=== PATIENT | male | born 1975 ===

== ENCOUNTER 2018-10-01 01:08 | Emergency (ER) | payer SELFPAY ==
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
[2018-10-01 04:33] VITALS: TEMP 98.1
[2018-10-01] MEDS ORDERED: Lidocaine/Prilocaine 2.5%-2.5% Cream (5 gm) TOP STA (05:54)
[2018-10-01] MEDS ORDERED: Lidocaine/Prilocaine 2.5%-2.5% Cream (5 gm) TOP ONE (06:00)
[2018-10-01 06:13] VITALS: BP 101/72; PULSE 80; RESP 20; O2SAT 96
[2018-10-01] MEDS ORDERED: Bacitracin 500 Units/gm Oint Foilpak UD ONE (06:27)
--- NOTE | 2018-10-01 08:45 | CT ---
Date of service: 10/01/2018 PROCEDURE: CT HEAD WITHOUT CONTRAST. HISTORY: Fall COMPARISON: None available. TECHNIQUE: Axial computed tomography images were obtained through the head/brain without intravenous contrast. Radiation dose: Total exam DLP = 1047.36 mGy-cm. This CT exam was performed using one or more of the following dose reduction techniques: Automated exposure control, adjustment of the mA and/or kV according to patient size, and/or use of iterative reconstruction technique. FINDINGS: HEMORRHAGE: No intracranial hemorrhage. BRAIN: Leiva-white matter differentiation is preserved. There is no mass, mass effect or abnormal extra-axial fluid collection. There is no territorial infarction. The midline sagittal structures are normal. VENTRICLES: The ventricles are normal in size, shape and configuration. CALVARIUM: There is no calvarial fracture or extracranial soft tissue swelling. PARANASAL SINUSES: There is moderate scattered mucoperiosteal thickening in the ethmoid air cells and mild mucosal thickening in the visualized maxillary sinuses. The remaining included paranasal sinuses are clear. MASTOID AIR CELLS: Predominantly clear. OTHER FINDINGS: None. IMPRESSION: No acute intracranial abnormality. A preliminary report was provided by [employer].
--- NOTE | 2018-10-01 09:01 | CT ---
Date of service: 10/01/2018 PROCEDURE: Radiographs of the Orbits. HISTORY: Fall COMPARISON: None available. TECHNIQUE: Frontal, lateral and oblique radiographs of the orbits were obtained. FINDINGS: ORBITS: There is no acute orbital fracture. The globes are symmetric. There is no intra or retro-orbital hemorrhage. The lenses are normally located. PARANASAL SINUSES: There is moderate mucosal thickening in the ethmoid air cells and moderate polypoid mucosal thickening in the maxillary sinuses. The remaining included paranasal sinuses and mastoid air cells are clear. OTHER FINDINGS: None. IMPRESSION: No acute orbital fracture. No acute findings. A preliminary report was provided by [email or web address].
== END 2018-10-01 06:43 | disposition home or self-care (01) ==
LOC: C.ER 01:08
DX: S01.411A Laceration without foreign body of right cheek and temporomandibular area, initial encounter (principal); Y08.89XA Assault by other specified means, initial encounter